=== PATIENT | female | born 1950 | race Caucasian/White ===

== ENCOUNTER 2023-04-03 14:32 | Outpatient (CLI) | payer MEDICARE, SELFPAY ==
--- NOTE | ~2023-04-03 | MR_ITS ---
EXAMINATION: MR brain IAC wo/w con DATE: 04/03/2023 15:31 INDICATION: Left-sided asymmetrical sensorineural hearing loss. TECHNIQUE: Magnetic resonance imaging (MRI) of the brain, brainstem, and internal auditory canals was performed without and with 17 mL MultiHance intravenous contrast. COMPARISON: None. FINDINGS: There are scattered areas of nonspecific increased T2-weighted signal intensity in the cere bral white matter and tarun. There is no intracranial hemorrhage, acute infarction, or abnormal intrac ranial mass lesion. The ventricles are normal in size. The paranasal sinuses are clear. There are lik christiana changes of ocular lens replacement surgeries. The internal auditory canals, inner ears, tympanic cavities, and mastoid air cells are normal. IMPRESSION: 1. Moderate nonspecific cerebral white matter disease and pontine disease, which likely represents ch ronic small vessel ischemic disease. Reviewed, dictated and finalized at location A. FORCE MANAGEMENT COORDINATOR IMPRESSION: 1. Moderate nonspecific cerebral white matter disease and pontine disease, whic h likely represents chronic small vessel ischemic disease.
== END 2023-04-03 14:33 ==
LOC: MICIMG 14:35
PROVIDERS: PCP Otolaryngology; Visit Provider Otolaryngology
DX: H90.3 Sensorineural hearing loss, bilateral (principal); R90.82 White matter disease, unspecified
CPT/HCPCS: 70553; A9577

== ENCOUNTER 2023-05-10 12:04 | Outpatient (CLI) | payer MEDICARE, SELFPAY ==
--- NOTE | 2023-05-10 13:41 | ECG_ITS ---
Measurements Intervals [place] Rate: 48 P: 51 NC: 264 QRS: -13 QRSD: 94 T: 1 QT: 447 QTc: 402 Interpretive Statements SINUS BRADYCARDIA WITH FIRST DEGREE AV BLOCK LOW QRS VOLTAGE IN PRECORDIAL LEADS VOLTAGE CRITERIA FOR LVH POOR R WAVE PROGRESSION, ANTERIOR LEADS BORDERLINE T WAVE ABNORMALITY- ANT/INF LEADS BASELINE ARTIFACT- I, II, III, AVR, AVL, AVF ABNORMAL ECG NO PREVIOUS ECG AVAILABLE FOR COMPARISON Electronically Signed On 05-10-2023 14:04:57 APPLICATIONS INSTRUCTOR by Constantin Blas D.O.
[2023-05-10 14:22] LABS: Basophils Absolute Auto 0.1 K/mm3 (0.0-0.1); Basophils Percent Auto 0.6 % (0.2-1.2); Eosinophils Absolute Auto 0.2 K/mm3 (0-0.3); Hematocrit 41.8 % (37.0-47.0); Hemoglobin 14.2 g/dL (12.0-15.0); Immature Granulocyte Absolute 0.05 K/mm3 (0.00-0.031); Immature Granulocyte Percent A 0.4 % (0-0.5); Lymphocytes Percent Auto 17.7 % (18.3-44.2); Mean Corpuscular Hemoglobin 32.1 pg (26-34); Mean Corpuscular Volume 94.4 fl (80-100); Mean Platelet Volume 10.2 fl (7.4-10.4); Monocytes Absolute Auto 1.1 K/mm3 (0.1-0.6); Monocytes Percent Auto 10.1 % (2.6-8.5); Neutrophils Absolute Auto 7.8 K/mm3 (1.3-6.7); Neutrophils Percent Auto 69.2 % (45.5-73.1); Platelet Count Result 235 k/mm3 (150-375); Red Blood Count 4.43 M/mm3 (4.2-5.4); Red Cell Distribution Width 13.9 % (11.5-14.5); White Blood Count 11.3 K/mm3 (4.5-10.0)
[2023-05-10 14:32] LABS: Albumin Level 4.7 g/dL (3.5-5.1); Anion Gap 11 mmol/L (8-16); Blood Urea Nitrogen 16 mg/dL (7-17); Calcium 9.8 mg/dL (8.4-10.2); Carbon Dioxide 28 mmol/L (22-30); Chloride 103 mmol/L (98-107); Estimated Glomerular Filt Rate > 60; Glucose 126 mg/dL (65-110); Potassium 3.5 mmol/L (3.4-5.0); Sodium 142 mmol/L (137-145)
[2023-05-10 14:34] LABS: Urine Cotinine NEGATIVE
[2023-05-10 14:38] LABS: Hemoglobin A1C 6.1 % (<5.7)
== END 2023-05-10 12:05 | disposition home or self-care (01) ==
LOC: ANHSURGERY 12:08
PROVIDERS: PCP Family Medicine; Visit Provider Orthopaedic Surgery
DX: Z01.818 Encounter for other preprocedural examination (principal); M17.0 Bilateral primary osteoarthritis of knee
CPT/HCPCS: 80048; 80307; 82040; 83036; 85025; 87081; 87147; 87181; 87186; 93005

== ENCOUNTER 2023-05-31 03:51 | Day surgery (SDC) | payer MEDICARE, SELFPAY ==
[2023-05-10 12:48] VITALS: BMI 30.7
--- NOTE | 2023-05-10 12:48 | PC.NURSE ---
Addendum entered by Preethi Hernandez RN 05/10/23 13:22: PT AWARE TO STOP VITAMINS/SUPPLEMENTS 3 DAYS PRIOR TO SURGERY - DATE TO TAKE LAST DOSE 05/27/23 Original Note: PRE-OP INSTRUCTIONS, PLEASE READ CAREFULLY Report to the Outpatient Waiting Room, entrance under the green pavilion located off [facility], at time _1000_ on date _05/31/23_. Planned Procedure Time: _1200_. PACK A SMALL OVERNIGHT BAG AND LEAVE IN THE CAR ALONG WITH YOUR WALKER Time changes happen often and if your time is changed the preop area will call you the afternoon before. - You and your visitor will be asked to self-screen and do not enter if you have any COVID symptoms. - A mask is optional within the hospital at this time. -VISITING HOURS 8AM-8PM Patients may have clear liquids (water, carbonated beverages, clear teas, apple juice) until 3 hours prior to surgery (0900 AM) with a maximum of 20 ounces. - No food from midnight until time of surgery Take the following medications with a SIP of water the morning of surgery: _VERAPAMIL, ESCITALOPRAM, METOPROLOL, & TYLENOL IF NEEDED_ DO NOT STOP ANY OF YOUR OTHER PRESCRIPTION MEDICATIONS PRIOR TO SURGERY ?EXCEPT THE FOLLOWING Medications to discontinue per DR. MORALES - _ALEVE 7 DAYS PRIOR TO SURGERY, Date to take last dose 05/23/23_ Please no make-up, nail mongolian, hairspray, perfume, deodorant, or body powder the day of surgery. No jewelry (including any body piercings) or valuables the day of surgery, leave them at home. Please take a shower or bath the night before, or the morning of, surgery with an antibacterial soap. Wear comfortable, loose fitting clothing. - Jewelry must be removed prior to entering the operating room. Rings and piercings that are not removed may be cut off. - The hospital will not accept responsibility for valuables. - Please leave all valuables, including medications, at home the day of surgery. If you are going home after surgery, a licensed trailer driver must drive you home. - NO public transportation without another adult if you receive anesthesia. - We recommend that an adult stay with you for 24 hours following discharge. - We also recommend that you do not drive, make important decision, drink alcoholic beverages, or take any drugs that were not prescribed by your health care provider for at least 24 hours after your discharge time. Follow any additional instructions given to you from your surgeon. If you or anyone in your household have experienced Covid symptoms in the past week, please notify your surgeon or the nurse liaison at the phone number below for possible testing. Instructions given to _PATIENT_and asked if any additional questions and then verbalized understanding. Patient advised to call surgeon office or pre surgery nurse liaison [phone] if any additional questions.
[2023-05-10 13:18] VITALS: BP 164/70; PULSE 50; RESP 18; TEMP 37.3; O2SAT 98
--- NOTE | 2023-05-31 08:01 | P.HP_ITS ---
H&P: HPI History of Present Illness Date/Time: 05/31/23 08:01 Chief Complaint: bilateral knee DJD Narrative: 73 y/o patient of Dr Schofield who presents today for right total knee with injection to the left knee.Patient has advanced OA in the right knee. She has treating this non-surgically for several years. Last shot in the knee was December of last year, Shots and medications at this are not helping with her symptoms, she feels at this point she is ready to proceed with total knee arthroplasty. Review of Systems Review of Systems: All systems reviewed & are unremarkable except as noted in HPI and below PMFSH Social History Social History Smoking status: Never smoker Second hand tobacco smoke exposure: No Additional smoking assessment comments: PT DENIES ALL FORMS OF TOBACCO USE Alcohol intake: never Substance use: never Substance use type: does not use Living arrangements: alone Additional living arrangements comments: SON REBA TO STAY WITH PT POST OP Spiritual care concerns: No Meds Home Medications and Allergies Home Medications Medication Instructions Recorded Confirmed Type acetaminophen 500 mg tablet 1,000 mg PO Q6H PRN Pain 05/10/23 05/10/23 History ascorbic acid (vitamin C) 500 mg 500 mg PO DAILY 05/10/23 05/10/23 History tablet (Vitamin C) calcium carbonate 600 mg-vitamin 2 cap PO DAILY 05/10/23 05/10/23 History D3 5 mcg (200 unit) capsule (Calcium 600 + D(3)) escitalopram oxalate 5 mg tablet 5 mg DAILY 05/10/23 05/10/23 History hydrochlorothiazide 25 mg tablet 12.5 mg DAILY 05/10/23 05/10/23 History losartan 50 mg tablet 50 mg DAILY 05/10/23 05/10/23 History metoprolol succinate 100 mg 100 mg PO BID 05/10/23 05/10/23 History tablet,extended release 24 hr naproxen sodium 220 mg tablet 220 mg PO BID PRN Pain 05/10/23 05/10/23 History (Aleve) simvastatin 40 mg tablet 40 mg HS 05/10/23 05/10/23 History verapamil 240 mg tablet,extended 240 mg PO DAILY 05/10/23 05/10/23 History release Allergies Allergy/AdvReac Type Severity Reaction Status Date / Time azithromycin AdvReac Rash Verified 05/10/23 13:10 [From Zithromax Z-Peter] Sulfa (Sulfonamide AdvReac Rash Verified 05/10/23 13:10 Antibiotics) Exam Narrative: 73 y/o alert , she is 5 ft 5in and 187lb s. right knee ROM is 3-120. Moderate effusion. Hip ROM is full ,neg. stinchfields. 2+ dorsalis pedis pulse, no numbness in the lower extremities and no edema. normal quad strength Resp: Auscultation: clear to auscultation bilaterally Cardio: Rate: regular rate Rhythm: regular rhythm Assessment and Plan Assessment and plan (1) Right knee DJD: Code(s): M17.11 - Unilateral primary osteoarthritis, right knee Status: Acute Plan 73 y/o with severe medial compartment OA in right knee with continued symptoms. At this point she would like to proceed with TKA. surgical procedure as well as the risks and complications were discussed in detail. She has seen her PCP as well as cardiologybefore surgery. Nasal swab was positive for ANTONINO.Chem panel an d CBC were both normal
[2023-05-31] MEDS: ACETAMINOPHEN 500 MG TABLET 1000 MG PO (10:12)
[2023-05-31] MEDS: LACTATED RINGERS 1,000 ML 30 ML IV CONT (10:35)
[2023-05-31] MEDS: VANCOMYCIN 1,250 MG/NS 250 ML 1,250 MG/250 ML BAG 166.67 MG IVPB (10:40)
[2023-05-31 10:49] VITALS: BP 150/72; PULSE 59; RESP 16; TEMP 36.7; O2SAT 96
--- NOTE | 2023-05-31 11:00 | WPDANESEPPF ---
Anes - Initial Pre Proc Eval Procedure: Operation Date: 05/31/23 12:00 Proposed Procedures p Right Total Knee Arthroplasty, Left Knee Cortisone Injection - Car De La Rosa MD Date/Time: 05/31/23 11:00 Surgeon: Car De La Rosa MD Pre Op Diagnosis: OA right and Left knee Patient Data Age: 73 Gender: F Height: 1.68 m Weight: 85.4 kg Last Vital Signs Temp 98.0 F 05/31/23 10:49 Pulse 59 L 05/31/23 10:49 Resp 16 05/31/23 10:49 BP 150/72 H 05/31/23 10:49 Pulse Ox 96 05/31/23 10:49 O2 Del Method Room Air 05/31/23 10:49 Allergies Allergy/AdvReac Type Severity Reaction Status Date / Time azithromycin Allergy Rash Verified 05/31/23 08:34 [From Zithromax Z-Peter] shellfish derived Allergy Hives Verified 05/31/23 10:22 Sulfa (Sulfonamide Allergy Rash Verified 05/31/23 08:34 Antibiotics) Home Medications Medication Instructions Recorded Confirmed Type acetaminophen 500 mg tablet 1,000 mg PO Q6H PRN Pain 05/10/23 05/31/23 History ascorbic acid (vitamin C) 500 mg 500 mg PO DAILY 05/10/23 05/31/23 History tablet (Vitamin C) calcium carbonate 600 mg-vitamin 2 cap PO DAILY 05/10/23 05/31/23 History D3 5 mcg (200 unit) capsule (Calcium 600 + D(3)) escitalopram oxalate 5 mg tablet 5 mg DAILY 05/10/23 05/31/23 History hydrochlorothiazide 25 mg tablet 12.5 mg DAILY 05/10/23 05/31/23 History losartan 50 mg tablet 50 mg DAILY 05/10/23 05/31/23 History metoprolol succinate 100 mg 100 mg PO BID 05/10/23 05/31/23 History tablet,extended release 24 hr naproxen sodium 220 mg tablet 220 mg PO BID PRN Pain 05/10/23 05/31/23 History (Aleve) simvastatin 40 mg tablet 40 mg HS 05/10/23 05/31/23 History verapamil 240 mg tablet,extended 240 mg PO DAILY 05/10/23 05/31/23 History release Patient hx anesthesia problems: none Family hx anesthesia problems: none Results Review: All pre-operative results and documents have been reviewed as part of the pre-operative evaluation. [facility] Social History Social History Smoking status: Never smoker Second hand tobacco smoke exposure: No Additional smoking assessment comments: PT DENIES ALL FORMS OF TOBACCO USE Alcohol intake: never Substance use: never Substance use type: does not use Living arrangements: alone Additional living arrangements comments: SON REBA TO STAY WITH PT POST OP Spiritual care concerns: No Anes - Eval Final PreProcedure Day of Procedure 05/31/23 11:00 Patient weight: obese Heart: regular rate and rhythm Lungs: clear to auscultation Airway: Mallampati scale class III Neurological: alert and oriented Last oral intake: >/= 8 hours ASA classification: III Emergent: no Anesthetic plan: proceed Anesthesia type and monitoring: general ETT and standard monitoring Results Review: All pre-operative results and documents have been reviewed as part of the pre-operative evaluation. Informed Consent: The patient's anesthetic plan and its attendant risks and benefits were discussed with the patient/family/POA. Questions were solicited and answers provided to the satisfaction of the patient/family/POA.
--- NOTE | 2023-05-31 13:27 | SUR.PREOP ---
1130- PT cancelled per Debra De La Rosa, d/t no tele bed for pt to go to after surgery. Pt has a cardiac hx and no bed available post op. Jemma to bedside and RN to update pt. All questions answered and pt given discharge instructions. Pt informed to call Dr. De La Rosa's office to reschedule.
== END 2023-05-31 11:59 | disposition home or self-care (01) ==
PROVIDERS: PCP Family Medicine; Visit Provider Orthopaedic Surgery
PROC: (CPT 27447; principal; 2023-05-31 12:00)
DX: M17.0 Bilateral primary osteoarthritis of knee (principal); Z53.8 Procedure and treatment not carried out for other reasons
CPT/HCPCS: 36415; 80048; 80307; 82040; 83036; 85025; 86850; 86900; 86901; 87081; 87147; 87181; 87186; 93005; 99212; A9270; C1713; G0463; J0171; J1030; J1040; J1885; J2270; J2795; J3370; J7120

== ENCOUNTER 2023-06-15 01:09 | Day surgery (SDC) | payer MEDICARE, SELFPAY ==
[2023-06-05 08:18] VITALS: BMI 29.9
--- NOTE | 2023-06-05 08:24 | PC.NURSE ---
Report to the Outpatient Waiting Room, entrance under the green pavilion located off [facility], at time __0600 on date __06/15/23 . Planned Procedure Time: __0730 . PACK A SMALL OVERNIGHT BAG AND LEAVE IN THE CAR ALONG WITH YOUR WALKER Time changes happen often and if your time is changed the preop area will call you the afternoon before. - You and your visitor will be asked to self-screen and do not enter if you have any COVID symptoms. - A mask is optional within the hospital at this time. Patients may have clear liquids (water, carbonated beverages, clear teas, apple juice) until 3 hours prior to surgery (0430 AM) with a maximum of 20 ounces. - No food from midnight until time of surgery - Infants may have breast milk until 4 hours before surgery, formula 6 hours prior to surgery. - Children will be allowed to drink immediately following surgery. If applicable, please bring a bottle or sippy cup to assist with drinking. Juice, water, soda, and popsicles are readily available. For infants on formula, please bring formula the day of surgery. Pacifiers are allowed. Take the following medications with a SIP of water the morning of surgery: _VERAPAMIL, ESCITALOPRAM, METOPROLOL & TYLENOL IF NEEDED_ DO NOT STOP ANY OF YOUR OTHER PRESCRIPTION MEDICATIONS PRIOR TO SURGERY ?EXCEPT THE FOLLOWING Medications to discontinue per DR. MORALES -_ALEVE 7 DAYS PRIOR TO SURGERY, Date to take last dose 06/07/23_ Please no make-up, nail macedonian, hairspray, perfume, deodorant, or body powder the day of surgery. No jewelry (including any body piercings) or valuables the day of surgery, leave them at home. Please take a shower or bath the night before, or the morning of, surgery with an antibacterial soap. Wear comfortable, loose fitting clothing. Children are encouraged to wear pajamas. - Jewelry must be removed prior to entering the operating room. Rings and piercings that are not removed may be cut off. - The hospital will not accept responsibility for valuables. - Please leave all valuables, including medications, at home the day of surgery. If you are going home after surgery, a licensed reefer truck driver must drive you home. - NO public transportation without another adult if you receive anesthesia. - We recommend that an adult stay with you for 24 hours following discharge. - We also recommend that you do not drive, make important decision, drink alcoholic beverages, or take any drugs that were not prescribed by your health care provider for at least 24 hours after your discharge time. For Pediatric surgeries, we recommend two adults accompany the child home. Follow any additional instructions given to you from your surgeon. If you or anyone in your household have experienced Covid symptoms in the past week, please notify your surgeon or the nurse liaison at the phone number below for possible testing. Telephone instructions given to ____PT and asked if any additional questions and then verbalized understanding. Patient advised to call surgeon office or pre surgery nurse liaison [phone] if any additional questions.
[2023-06-15] VITALS (19 sets, daily range): BP systolic 109–158; BP diastolic 44–70; PULSE 52–69; RESP 12–21; TEMP 36.1–37.1; O2SAT 91–97
--- NOTE | ~2023-06-15 | XR_ITS ---
EXAMINATION: [id number] DATE: 06/15/2023 11:21 INDICATION: Postoperative evaluation following right total knee arthroplasty. TECHNIQUE: Anteroposterior and lateral views of the right knee were obtained. COMPARISON: None. FINDINGS: Right total knee arthroplasty without patellar resurfacing appears well seated and in near anatomic a lignment. No fractures identified. Expected postoperative subcutaneous and intra-articular gas. IMPRESSION: 1. Right total knee arthroplasty, negative for postoperative purposes. Reviewed, dictated and finalized at location [facility]
[2023-06-15] MEDS: ACETAMINOPHEN 500 MG TABLET 1000 MG PO (06:14)
[2023-06-15] MEDS: LACTATED RINGERS 1,000 ML 30 ML IV CONT ×2 (06:35→11:01)
[2023-06-15] MEDS: VANCOMYCIN 1,250 MG/NS 250 ML BAG 166.67 MG IVPB (06:35)
--- NOTE | 2023-06-15 06:49 | PM.IMHP ---
H&P: HPI History of Present Illness Date/Time: 06/15/23 06:49 Chief Complaint: Osteoarthritis right knee and left knee Narrative: patient is a 72-year-old female being admitted for right total knee arthroplasty and cortisone injection into her left knee. She was previously scheduled for 05/31/2023. We planned to have cardiac monitoring available after surgery because she has a history of a cardiac ablation and surgery may cause recurrence of her supraventricular tachycardia and necessitate cardiac monitoring. She has had extensive non operative treatment with cortisone injections the and nonsteroidal anti-inflammatory medications and her symptoms have become intolerable and she has decided she would rather proceed with total knee replacement right knee and a cortisone injection for the left knee while she is under anesthesia. History of arthroscopy in the right knee 2006. History of ablation for SVT in 2015. Bunionectomies in 1999. She lists allergy to sulfa antibiotics which cause rash. I see the chart states Z-Peter to also caused a rash but that was not in our records in the office. [facility] Social History Social History Smoking status: Never smoker Second hand tobacco smoke exposure: No Additional smoking assessment comments: PT DENIES ALL FORMS OF TOBACCO USE Alcohol intake: never Substance use: never Substance use type: does not use Living arrangements: alone Additional living arrangements comments: SON REBA TO STAY WITH PT 2 DAYS POST OP Spiritual care concerns: No Meds Home Medications and Allergies Home Medications Medication Instructions Recorded Confirmed Type acetaminophen 500 mg tablet 1,000 mg PO Q6H PRN Pain 05/10/23 06/05/23 History ascorbic acid (vitamin C) 500 mg 500 mg PO DAILY 05/10/23 06/05/23 History tablet (Vitamin C) calcium carbonate 600 mg-vitamin 2 cap PO DAILY 05/10/23 06/05/23 History D3 5 mcg (200 unit) capsule (Calcium 600 + D(3)) escitalopram oxalate 5 mg tablet 5 mg DAILY 05/10/23 06/05/23 History hydrochlorothiazide 25 mg tablet 12.5 mg DAILY 05/10/23 06/05/23 History losartan 50 mg tablet 50 mg DAILY 05/10/23 06/05/23 History metoprolol succinate 100 mg 100 mg PO BID 05/10/23 06/05/23 History tablet,extended release 24 hr naproxen sodium 220 mg tablet 220 mg PO BID PRN Pain 05/10/23 06/05/23 History (Aleve) simvastatin 40 mg tablet 40 mg HS 05/10/23 06/05/23 History verapamil 240 mg tablet,extended 240 mg PO DAILY 05/10/23 06/05/23 History release Allergies Allergy/AdvReac Type Severity Reaction Status Date / Time azithromycin Allergy Rash Verified 06/15/23 06:11 [From Zithromax Z-Peter] shellfish derived Allergy Hives Verified 06/15/23 06:11 Sulfa (Sulfonamide Allergy Rash Verified 06/15/23 06:11 Antibiotics) Vital Signs Vital Signs - 24 hr 06/15/23 06:15 Temperature 36.8 C Pulse Rate 52 L Respiratory Rate 16 Blood Pressure 158/70 H Pulse Oximetry 96 Oxygen Delivery Room Air Exam Narrative: On examination today she is alert and oriented. Heart and lung auscultation will be documented by Anesthesia. She is 5 ft 5-1/2 in in height 187 lb BMI of 30.8 and she rates her pain at 8/10. Range of motion of the right knee 3-120 degrees moderate effusion. No redness swelling or warmth. Normal AP and medial-lateral stability. Moderate tenderness over the medial joint line and with patellofemoral grind. She had full range of motion of her right hip without discomfort. Negative Stinchfield maneuver. 2+ dorsalis pedis and posterior tibial artery pulses were palpable. No lower extremity edema. Normal sensation. Patellofemoral crepitus with range of motion. 5/5 quadriceps strength. H&P: Results Imaging X-rays right knee: My impression: x-rays right knee demonstrate the rather advanced severe medial compartment osteoarthritis of the right knee. Assessment and Plan Assessment and plan (1) Primary loc
[2023-06-15] MEDS: TRANEXAMIC ACID 1,000MG/ISO100 1,000 MG/100 ML BAG 200 MG IVPB (07:00)
--- NOTE | 2023-06-15 07:04 | WPDHPUPDATE1 ---
History and Physical Update Update Date/Time: 06/15/23 07:04 History and Physical has been reviewed, including an updated exam of the patient. There are NO changes in the patient's condition. Risks, benefits, and alternatives have been discussed and questions answered. Patient agrees to proceed with procedure.
--- NOTE | 2023-06-15 07:06 | WPDANESEPPF ---
Anes - Initial Pre Proc Eval Procedure: Operation Date: 06/15/23 07:30 Proposed Procedures p Right Total Knee Arthroplasty, Cortisone Injecton Left Knee - Car De La Rosa MD Date/Time: 06/15/23 07:06 Surgeon: Car De La Rosa MD Pre Op Diagnosis: O A Bilateral Knee Patient Data Age: 73 Gender: F Height: 1.68 m Weight: 86.4 kg Last Vital Signs Temp 98.2 F 06/15/23 06:15 Pulse 52 L 06/15/23 06:15 Resp 16 06/15/23 06:15 BP 158/70 H 06/15/23 06:15 Pulse Ox 96 06/15/23 06:15 O2 Del Method Room Air 06/15/23 06:15 Allergies Allergy/AdvReac Type Severity Reaction Status Date / Time azithromycin Allergy Rash Verified 06/15/23 06:11 [From Zithromax Z-Peter] shellfish derived Allergy Hives Verified 06/15/23 06:11 Sulfa (Sulfonamide Allergy Rash Verified 06/15/23 06:11 Antibiotics) Home Medications Medication Instructions Recorded Confirmed Type acetaminophen 500 mg tablet 1,000 mg PO Q6H PRN Pain 05/10/23 06/15/23 History ascorbic acid (vitamin C) 500 mg 500 mg PO DAILY 05/10/23 06/15/23 History tablet (Vitamin C) calcium carbonate 600 mg-vitamin 2 cap PO DAILY 05/10/23 06/15/23 History D3 5 mcg (200 unit) capsule (Calcium 600 + D(3)) escitalopram oxalate 5 mg tablet 5 mg DAILY 05/10/23 06/15/23 History hydrochlorothiazide 25 mg tablet 12.5 mg DAILY 05/10/23 06/15/23 History losartan 50 mg tablet 50 mg DAILY 05/10/23 06/15/23 History metoprolol succinate 100 mg 100 mg PO BID 05/10/23 06/15/23 History tablet,extended release 24 hr naproxen sodium 220 mg tablet 220 mg PO BID PRN Pain 05/10/23 06/15/23 History (Aleve) simvastatin 40 mg tablet 40 mg HS 05/10/23 06/15/23 History verapamil 240 mg tablet,extended 240 mg PO DAILY 05/10/23 06/15/23 History release Patient hx anesthesia problems: none Family hx anesthesia problems: none Results Review: All pre-operative results and documents have been reviewed as part of the pre-operative evaluation. [facility] Social History Social History Smoking status: Never smoker Second hand tobacco smoke exposure: No Additional smoking assessment comments: PT DENIES ALL FORMS OF TOBACCO USE Alcohol intake: never Substance use: never Substance use type: does not use Living arrangements: alone Additional living arrangements comments: SON REBA TO STAY WITH PT 2 DAYS POST OP Spiritual care concerns: No Anes - Eval Final PreProcedure Day of Procedure 06/15/23 07:06 Patient weight: obese Heart: regular rate and rhythm Lungs: clear to auscultation Airway: Mallampati scale class II Neurological: alert and oriented Last oral intake: >/= 8 hours ASA classification: III Emergent: no Anesthetic plan: proceed Anesthesia type and monitoring: general ETT and standard monitoring Results Review: All pre-operative results and documents have been reviewed as part of the pre-operative evaluation. Informed Consent: The patient's anesthetic plan and its attendant risks and benefits were discussed with the patient/family/POA. Questions were solicited and answers provided to the satisfaction of the patient/family/POA.
[2023-06-15] MEDS: ceFAZolin 2 GM/D5W 50 ML 2 GM/50 ML BAG IVPB (07:30)
[2023-06-15] MEDS: methylPREDNISolone ACETATE 80 MG/ML VIAL IM (07:40)
[2023-06-15] MEDS: ceFAZolin SODIUM 1 GM VIAL 3 GM (09:05)
[2023-06-15] MEDS: LIDOCAINE HCL 1% LOCAL INJ 10 ML VIAL 4 ML INFILTRATE (09:10)
[2023-06-15] MEDS: GENTAMICIN BONE CEMENT REFOBACIN 1 EACH TOPICAL (09:40)
[2023-06-15] MEDS: TRANEXAMIC ACID 1,000 MG/10 ML AMPUL 1000 MG IV PUSH (09:53)
[2023-06-15] MEDS: ceFAZolin SODIUM 1 GM VIAL 2 GM IV PUSH (09:54)
[2023-06-15] MEDS: KETOROLAC 15 MG/ML VIAL (*BKC) IV PUSH ×3 (10:31→22:40)
--- NOTE | 2023-06-15 11:06 | W.PM.PROC2 ---
Procedure Note - Detailed Date of Procedure 06/15/23 Pre-op Diagnosis O A Bilateral Knee Post-op Diagnosis Same Procedure Performed Right total knee arthroplasty, cortisone injection left knee Surgeon Car De La Rosa MD Anesthesia General Description of Procedure Patient was brought to the operating room and general anesthesia was administered. She received 2 g of Ancef weight based vancomycin 1 g of tranexamic acid preoperatively. The left knee was prepped with chlorhexidine and 80 mg of Depo-Medrol and 4 cc 1% lidocaine were injected into the left knee without difficulty. The right leg was prepped draped usual fashion. Under anesthesia she appeared to have full extension. A 6 in longitudinal incision was made and a vastus medialis splitting approach utilized splitting the vastus medialis at the superior pole of patella. Infrapatellar and suprapatellar fat pads were excised a quadriceps synovectomy carried out. There was inferomedial marginal osteophyte which was debrided otherwise the articular surface and the patella was in good condition and I felt it was most suitable for non resurfacing. A conservative lateral facetectomy was performed. Next a guide lenora was inserted down the femoral canal after aspiration of canal contents using the 5 degree valgus cutting bushing, 8 mm of bone removed the distal femur. She had quite a bit of wear medially and for this reason we only took off 8 to start. This removed 8 from the lateral side. Next the tibial plateau was cut. We made a cut perpendicular to the axis of the medial tibial plateau just under the low point medial where area. Bone quality was good both bones. Meniscal remnants were excised and the PCL recessed. In flexion, the prominent wear of the posterior aspect of the medial femoral condyle was also notable. The flexion gap measured 10 mm medially and 10 mm laterally. We applied the distal femoral sizing guide to the distal femur set at 0? of external rotation which matched [place] line. This gave the appropriate amount of external rotation due to the prominent wear medially. Posterior referencing pinholes were placed. The size 62.5 femoral cutting block was applied the distal femur AP and chamfer cuts were made and we trialed and this gave a perfect flush fit the anterior cortex and was line to line the lateral. The joint except that the 10 mm CR insert on a 67 trial at 90? of flexion. We had appropriate medial to lateral balance. The tibia was then prepared and we found that the size 71 vanguard fit line to line posterolateral to anteromedial at proper rotation and this was punched. We trialed with the 10 mm insert which had acceptable play and flexion perhaps just a little bit tighter medially than laterally. In extension the knee lacked about 5? and there was a mm of play laterally no play medially. Remaining tibial osteophyte was removed. We removed 1 mm bone from the distal femur. Posterior femoral osteophytes removed. We read trialed and with the 10 insert the knee just come out to full extension with negative bounce but was tight medially with no play at 0? and no play medially at 5?. 90? of flexion the medial side was a little bit tight as well with minimal anterior drawer medially. I felt we were a little bit tight medially in both flexion and extension. We had not performed a posterior capsular release. Tibial alignment was reassessed with trial components in place next that we were exactly neutral varus valgus. I elected to convert this to 1 degree of varus reapplied the tibial cutting guide and carefully removed 1 mm bone from the medial tibial plateau transitioning this to the lateral side. We confirmed we had a flat surface and we replenished and on read trialing the knee came out to full extension easily with negative bounce. There is a 0.5 mm of the plate valgus stress medially at 0 and 5? of flexion and anterior drawer was more balanced at 90? with a little bi
--- NOTE | 2023-06-15 13:21 | ADMGEN ---
This patient, Zulma Davis, was admitted to Medical Room 251-01. Patient/family oriented to hospital policies and general routines including ID bracelet, bed and alarms, visiting hours, pain management, procedures, bathroom and other care routines, personal items, smoking policy, room service/diet, and visiting hours. Information on how to activate the Rapid Response Team has been discussed. Patient/Family are encouraged to report perceived risks to care and to ask questions if they do not understand what they are told or what they should do.
[2023-06-15] MEDS: SODIUM CHLORIDE 0.9% IV 1,000 ML 125 ML IV CONT (14:12)
[2023-06-15] MEDS: ACETAMINOPHEN 325 MG TABLET 650 MG PO ×3 (14:13→22:39)
[2023-06-15] MEDS: oxyCODONE HCL (*CRX) 5 MG TAB IR PO ×3 (14:13→22:39)
--- NOTE | 2023-06-15 15:40 | WPDCN ---
Assessment and Plan Assessment and plan (1) Primary localized osteoarthritis of both knees: Code(s): M17.0 - Bilateral primary osteoarthritis of knee Status: Acute Assessment and Plan: Postoperative day 0 status post right total knee arthroplasty and cortisone injection of left knee. Wound care, pain control, and DVT prophylaxis deferred to Dr. De La Rosa. Check baseline labs in a.m. (2) Hypertension: Code(s): I10 - Essential (primary) hypertension Status: Acute Assessment and Plan: Blood pressures were reviewed and they have been stable postoperatively. Continue losartan, verapamil, and hydrochlorothiazide and monitor blood pressures. (3) Hyperlipidemia: Code(s): E78.5 - Hyperlipidemia, unspecified Status: Acute Assessment and Plan: Continue simvastatin and check LFTs in a.m. (4) Anxiety: Code(s): F41.9 - Anxiety disorder, unspecified Status: Acute Assessment and Plan: No acute issues. Continue escitalopram. Plan Thank you for allowing us to participate in this patient's care. Please do not hesitate to contact us with any questions. HPI Data of Consult Date/Time: 06/15/23 15:40 Requesting Physician: Car De La Rosa MD Consult Narrative Reason for consult: Medical management. Narrative: This is a very pleasant 73-year-old female with hypertension, hyperlipidemia, SVT with history of ablation, anxiety, and osteoarthritis whom the hospitalist service has been consulted for help managing her medical conditions postoperatively. She has had longstanding pain in both knees, right greater than left, and she elected for right total knee replacement today as conservative outpatient therapy has not provided her with longstanding relief. Her surgery was performed under general anesthesia with no immediate complications documented an estimated blood loss of 150 mL. She has done remarkably well postoperatively and her pain is well controlled. She has been up with therapy, to the chair, and to the bathroom without much issue. She has occasional twinges of nausea but nothing significant and she was able to eat lunch and dinner. She denies fever, chills, sweats, chest pain, shortness a breath, nausea, and vomiting. She also denies paresthesias, skin color, and temperature changes distal to the surgical site. Review of Systems Review of Systems: Twelve systems were reviewed. No recent cold or flu symptoms. She believes her chronic medical conditions are well controlled on medications. She has not had any issues with SVT since her ablation. No history of venous thromboembolism. Except as documented all other systems were reviewed and are negative. FORMERLY [facility], [facility] Past Medical History Medical History Anxiety Hyperlipidemia Hypertension Paroxysmal supraventricular tachycardia Status post cardiac ablation. Surgical History Surgical History History of arthroplasty of right knee (06/15/23) History of arthroscopy of right knee History of bunionectomy of both great toes History of cardiac radiofrequency ablation For PSVT. Family History Family History Other Family history non-contributory Social History Social History Social History: Surrogate medical decision maker: Juvenal Davis, son. Code status: Full code. Smoking status: Former smoker Second hand tobacco smoke exposure: No Alcohol intake: never Substance use: never Substance use type: does not use Do You Feel Safe in your Home?: Yes Lack of Transportation: No Lack of Food: Never True Current Housing: I Have Housing Concerned About Future Housing: No Difficulty Paying Gas/Electric Bills: No Difficulty Paying for Meds: No Currently Unemp
[2023-06-15] MEDS: SENNA/DOCUSATE SODIUM TABLET 2 TAB PO (17:02)
[2023-06-15] MEDS: ceFAZolin 1 GM/NS 50 ML 1 GM/50 ML BAG IVPB (17:02)
[2023-06-15] MEDS: VANCOMYCIN 1,000 MG/NS 250 ML 1,000 MG/250 ML BAG 250 MG IVPB (18:45)
[2023-06-15] MEDS: SIMVASTATIN 20 MG TABLET 40 MG PO (20:27)
[2023-06-15] MEDS: METOPROLOL SUCCINATE EXT REL 100 MG TABCR PO (20:28)
[2023-06-16] VITALS: PULSE 69
[2023-06-16] MEDS: ceFAZolin 1 GM/NS 50 ML 1 GM/50 ML BAG IVPB (02:29)
[2023-06-16] MEDS: ACETAMINOPHEN 325 MG TABLET 650 MG PO ×2 (02:29→06:19)
[2023-06-16] MEDS: oxyCODONE HCL (*CRX) 5 MG TAB IR PO ×2 (02:29→06:19)
[2023-06-16 04:00] VITALS: PULSE 57
[2023-06-16 04:46] VITALS: BP 129/55; PULSE 70; RESP 20; TEMP 36.6; O2SAT 92
[2023-06-16 06:15] LABS: Basophils Percent Auto 0.1 % (0.2-1.2); Hematocrit 33.8 % (37.0-47.0); Hemoglobin 11.1 g/dL (12.0-15.0); Immature Granulocyte Absolute 0.09 K/mm3 (0.00-0.031); Immature Granulocyte Percent A 0.6 % (0-0.5); Lymphocytes Absolute Auto 0.88 K/mm3 (0.9-3.2); Lymphocytes Percent Auto 5.9 % (18.3-44.2); Mean Corpuscular HGB Conc 32.8 g/dl (32-36); Mean Corpuscular Hemoglobin 31.7 pg (26-34); Mean Corpuscular Volume 96.6 fl (80-100); Mean Platelet Volume 10.1 fl (7.4-10.4); Monocytes Percent Auto 6.6 % (2.6-8.5); Neutrophils Absolute Auto 12.9 K/mm3 (1.3-6.7); Neutrophils Percent Auto 86.8 % (45.5-73.1); Platelet Count Result 207 k/mm3 (150-375); Red Cell Distribution Width 14.5 % (11.5-14.5); White Blood Count 14.8 K/mm3 (4.5-10.0)
[2023-06-16] MEDS: VANCOMYCIN 1,000 MG/NS 250 ML 1,000 MG/250 ML BAG 250 MG IVPB (06:19)
[2023-06-16 06:29] LABS: Alanine Aminotransferase 22 U/L (6-35); Albumin Level 3.6 g/dL (3.5-5.1); Alkaline Phosphatase 46 U/L (38-126); Anion Gap 7 mmol/L (8-16); Aspartate Amino Transferase 30 U/L (14-36); Bilirubin,Total 0.9 mg/dL (0.2-1.3); Blood Urea Nitrogen 21 mg/dL (7-17); Calcium 8.5 mg/dL (8.4-10.2); Carbon Dioxide 24 mmol/L (22-30); Chloride 108 mmol/L (98-107); Estimated CRCL calculation 71 ml/min; Estimated Glomerular Filt Rate > 60; Glucose 162 mg/dL (65-110); Sodium 139 mmol/L (137-145)
--- NOTE | 2023-06-16 06:36 | PM.DS ---
DS: Admitting Diagnosis Discharge Date 06/16/2023 Admitting Diagnosis Osteoarthritis both knees. Patient underwent right total knee arthroplasty and cortisone injection in left knee on 06/15/2023. DS: Summary Hospital Course Hospital Course: Patient had an uneventful postoperative course. She is intact to motor and sensory testing. Her Mepilex dressing has no blood on it she has no swelling. She has been walking around and she reports her pain at 1/10 this morning. She is doing very well. She wants to go home later this morning. She has physical therapy scheduled and she will follow up with me in 2 weeks. I reviewed her medications she will be taking the discharge. Precautions were discussed. Hospitalist did see her. She has been on telemetry and has had no tachycardia. Vital signs stable. Time Spent with Patient Time attestation: Total time spent providing and/or coordinating discharge services: DS: Data Data Completed and Pending Labs on day of discharge: Labs from last 24 hours 06/16/23 06/15/23 05:55 06:38 WBC 14.8 H RBC 3.50 L Hgb 11.1 L D Hct 33.8 L MCV 96.6 MCH 31.7 MCHC 32.8 RDW 14.5 Plt Count 207 MPV 10.1 Immature Gran % (Auto) 0.6 H Neut % (Auto) 86.8 H Lymph % (Auto) 5.9 L [place] % (Auto) 6.6 Eos % (Auto) 0.0 Baso % (Auto) 0.1 L Lymph # (Auto) 0.88 L [place] # (Auto) 1.0 H Eos # (Auto) 0.0 Baso # (Auto) 0.0 Abs Immat Gran (auto) 0.09 H Absolute Neuts (auto) 12.9 H Absolute Nucleated RBC 0.0 Nucleated RBC % 0.0 Sodium 139 Potassium 4.0 Chloride 108 H Carbon Dioxide 24 Anion Gap 7 L BUN 21 H Creatinine 0.70 Estim Creat Clear Calc 71 Estimated GFR > 60 Glucose 162 H Calcium 8.5 Magnesium 2.0 Total Bilirubin 0.9 Direct Bilirubin 0.0 AST 30 ALT 22 Alkaline Phosphatase 46 Total Protein 6.0 L Albumin 3.6 Blood Type A Positive Antibody Screen Negative Discharge Plan Discharge Patient Disposition: Home, Self-Care Discharge Instructions: [facility], [place] [phone] POST-OPERATIVE DISCHARGE INSTRUCTIONS TOTAL KNEE ARTHROPLASTY 1. When resting, do not rest in the chair.When resting, lie on your back, with back flat on the couch or bed, with leg elevated above heart to minimize swelling. You may put a pillow under your head. . Significant swelling could indicate a blood clot and if this occurs call the office (or go to the ER) to have a venous ultrasound. Therefore, do not rest in a chair. 2. At least five times a day spend several minutes stretching your knee into flexion while sitting in the chair and also stretching your knee out straight The abilities to bend your knee fulling and straighten your knee fully are two most important knee functions to focus on during your recovery. 3. It is ok to sit in chair to eat, use the toilet and receive a guest and to do your stretching exercises, but, sitting in a chair will cause your leg to swell. Therefore, avoid additional time sitting in the chair. and don't rest in the chair. 4. Wound Care: Nursing will give you an additional Mepilex dressing at the time of discharge. Patient to remove the dressing and apply a new Mepilex dressing at home 7 days after surgery and leave the dressing on until seen in office. 5. May shower with a Mepilex dressing in place.The water will run off the dressing. 6. Unless you are told otherwise, you may put full weight on your operated leg. Use a walker for balance and practice walking as normally as you can, ideally for a few minutes every hour while you are awake. 7. I would advise against putting ice packs on your knee incision. Ice constricts blood flow which can impar healing of the knee incision. IMPORTANT: Remember not to sit in the chair for more than 30 minutes at a time. As a rule, during the first 14 days after
[2023-06-16 08:00] VITALS: PULSE 75
[2023-06-16] MEDS: APIXABAN 2.5 MG TABLET PO (08:23)
[2023-06-16] MEDS: ESCITALOPRAM OXALATE 5 MG TABLET PO (08:23)
[2023-06-16] MEDS: MELOXICAM 7.5 MG TABLET PO (08:23)
[2023-06-16] MEDS: polyethylene glycoL 3350 17 GM POWD.PACK PO (08:23)
[2023-06-16] MEDS: SENNA/DOCUSATE SODIUM TABLET 2 TAB PO (08:23)
[2023-06-16] MEDS: VERAPAMIL HCL ER 240 MG TABLET.ER PO (08:23)
[2023-06-16] MEDS: LOSARTAN POTASSIUM 50 MG TABLET PO (08:23)
[2023-06-16] MEDS: METOPROLOL SUCCINATE EXT REL 100 MG TABCR PO (08:23)
--- NOTE | 2023-06-16 09:31 | PM.IMCN ---
Assessment and Plan Assessment and plan (1) Primary localized osteoarthritis of both knees: Code(s): M17.0 - Bilateral primary osteoarthritis of knee Status: Acute Assessment and Plan: Postoperative day 0 status post right total knee arthroplasty and cortisone injection of left knee. Wound care, pain control, and DVT prophylaxis deferred to Dr. De La Rosa. Check baseline labs in a.m. 06/16/23: Date of discharge -patient with good pain control over evening hours and no complications. Labs reviewed this morning demonstrate a leukocytosis 14, however this is likely a reactive inflammatory increased. Patient does not exhibit any systemic symptoms of acute infection and her physical exam is benign. (2) Hypertension: Code(s): I10 - Essential (primary) hypertension Status: Acute Assessment and Plan: Blood pressures were reviewed and they have been stable postoperatively. Continue losartan, verapamil, and hydrochlorothiazide and monitor blood pressures. 06/16/2023: Date of discharge-patient's blood pressures have remained in check over evening hours. She may discharge continuing home medications without any adjustments or changes. (3) Hyperlipidemia: Code(s): E78.5 - Hyperlipidemia, unspecified Status: Acute Assessment and Plan: Continue simvastatin and check LFTs in a.m. 06/16/2023: Date of discharge-continue home medications. Liver function tests including AST, ALT and T bili are within normal limits. (4) Anxiety: Code(s): F41.9 - Anxiety disorder, unspecified Status: Acute Assessment and Plan: No acute issues. Continue escitalopram. 06/16/2023: Date of discharge-continue home medications. Plan Thank you for allowing hospitalist service to participate in the care of the patient. We are signing off at this time. Should you have any new concerns please do not hesitate to reach out to us. HPI Date of Consult Consult date: 06/16/23 Requesting Physician: Car De La Rosa MD Primary Care Provider: Aydee Schofield MD Consult Narrative Narrative: Zulma Davis is a 73 year old female with past medical history of hyperlipidemia, anxiety, hypertension who underwent elective right total knee arthroplasty with cortisone injection of the left knee on 06/15/2023. Hospitalist service was consulted for medical management of chronic medical conditions. Patient was evaluated at the bedside this morning after being formally evaluated on consult yesterday post procedure and she endorses no new complaints overnight. As visualized her hypertension has remained within check and her anxiety has been well controlled. In addition patient has pain from her surgery is at an acceptable level and she has not developed any new symptoms of chest pain, dyspnea, nausea, vomiting, diarrhea or fevers. Review of Systems Review of Systems: All systems reviewed & are unremarkable except as noted in HPI and below PMFSH Past Medical History Medical History Anxiety Hyperlipidemia Hypertension Paroxysmal supraventricular tachycardia Status post cardiac ablation. Surgical History Surgical History History of arthroplasty of right knee (06/15/23) History of arthroscopy of right knee History of bunionectomy of both great toes History of cardiac radiofrequency ablation For PSVT. Family History Family History Other Family history non-contributory Social History Social History Social History: Surrogate medical decision maker: Juvenal Davis, son. Code status: Full code. Smoking status: Former smoker Second hand tobacco smoke exposure: No Alcohol intake: never Substance use: never Substance use type: does not use Do
[2023-06-16 10:24] VITALS: BP 129/54; PULSE 53; RESP 16; TEMP 36.8; O2SAT 91
== END 2023-06-16 11:10 | disposition home or self-care (01) ==
LOC: ANHSURGERY 06:00 → ANH2MED 12:11
PROVIDERS: PCP Family Medicine; Visit Provider Orthopaedic Surgery
PROC: (CPT 27447; principal; 2023-06-15 07:30)
DX: M17.0 Bilateral primary osteoarthritis of knee (principal); I10 Essential (primary) hypertension; E78.5 Hyperlipidemia, unspecified; F41.9 Anxiety disorder, unspecified; E66.9 Obesity, unspecified; Z68.32 Body mass index [BMI] 32.0-32.9, adult
CPT/HCPCS: 27447; 20610; 36415; 73560; 80048; 80076; 83735; 85025; 86850; 86900; 86901; 97110; 97116; 97161; 97165; 97530; 97535; A9270; C1713; C1776; J0171; J0690; J1040; J1100; J1170; J1596; J1885; J2001; J2250; J2270; J2405; J2704; J2795; J3010; J3370; J7030; J7120